=== PATIENT | male | born 1985 | race Two or more races ===

== ENCOUNTER 2021-03-10 10:00 | Emergency (ER) | payer SELFPAY ==
[~2021-03-10] VITALS: Ht 177.8 cm; Wt 77.3 kg
[2021-03-10] MEDS ORDERED: IBUPROFEN 600 MG TABLET PO ONE (11:45)
[2021-03-10] MEDS ORDERED: ACETAMINOPHEN/CODEINE 300-30 MG TABLET PO ONE (11:45)
[2021-03-10] MEDS ORDERED: CEPHALEXIN MONOHYDRATE 500 MG CAPSULE PO ONE (11:45)
[2021-03-10 13:13] LABS: COVID AG,FIA SOURCE NASOPHARYNGEAL
[2021-03-10 14:06] VITALS: BP 132/66
== END 2021-03-10 14:10 | disposition home or self-care (01) ==
LOC: EMS 10:12
DX: J06.9 Acute upper respiratory infection, unspecified (principal); H66.91 Otitis media, unspecified, right ear; Z20.822 Contact with and (suspected) exposure to COVID-19
CPT/HCPCS: 87426; 99285; Z7502; Z7610